=== PATIENT | female | born 1960 | race Asian ===

== ENCOUNTER 2019-10-03 13:53 | Emergency (ER) | payer MEDICAID ==
[~2019-10-03] VITALS: Ht 162.6 cm; Wt 63.6 kg
[2019-10-03] MEDS ORDERED: AMLO5TAB9 PO (13:55)
[2019-10-03] MEDS ORDERED: METF-960 PO (13:55)
[2019-10-03] MEDS ORDERED: ACETAMINOPHEN 325 MG TABLET PO ONE (14:45)
[2019-10-03] MEDS ORDERED: PERTUSS(ACELL),DIPH,TET VAC/PF 0.5 ML VIAL IM ONE (14:45)
[2019-10-03 16:22] VITALS: BP 162/99
== END 2019-10-03 18:05 | disposition home or self-care (01) ==
LOC: EMS 13:57
DX: S01.81XA Laceration without foreign body of other part of head, initial encounter (principal); E11.9 Type 2 diabetes mellitus without complications; I10 Essential (primary) hypertension; W01.0XXA Fall on same level from slipping, tripping and stumbling without subsequent striking against object, initial encounter; Y93.89 Activity, other specified; Y92.89 Other specified places as the place of occurrence of the external cause; Y99.8 Other external cause status
CPT/HCPCS: 12013; 70486; 90471; 90715